=== PATIENT | male | born 1985 | race Caucasian/White ===

== ENCOUNTER 2019-11-18 08:28 | Inpatient (IN) | payer OTHER ==
[2019-11-18] MEDS ORDERED: Iopamidol 370 76% 50 ML VIAL FS ONE (08:31)
[2019-11-18] MEDS ORDERED: Iopamidol 370 76% 100 ML VIAL ONE (08:31)
[2019-11-18] MEDS ORDERED: Ondansetron PF 4 MG/2 ML Vial ONE (08:59)
[2019-11-18 09:13] LABS: #Lymphocytes 0.8 thou/uL (1.20-3.40); #Monocytes 0.9 thou/uL (0.11-0.59); #Neutrophils 11.8 thou/uL (1.40-6.50); %Basophils 0.1 % (0.0-1.0); %Lymphocytes 5.5 % (21.0-51.0); %Monocytes 6.5 % (0.0-10.0); %Neutrophils 87.8 % (42.0-75.0); Hemoglobin 13.5 g/dL (14.0-18.0); Mean Corpuscular HGB CONC 33.9 g/dL (32.0-36.0); Mean Corpuscular Hemoglobin 34.9 pg (27.0-31.0); Mean Platelet Volume 8.5 fL (7.4-10.4); Platelet Count 203 thou/uL (130-400); RBC Distribution Width 11.2 % (11.5-14.5); Red Blood Cell (RBC) Count 3.88 mill/uL (4.70-6.10); White Blood Cell (WBC) Count 13.4 thou/uL (4.8-10.8)
[2019-11-18 09:37] LABS: ALT (SGPT) 309 U/L (8-55); AST (SGOT) 576 U/L (5-34); Alkaline Phosphatase 118 U/L (40-110); Anion Gap 18 mmol/L (10-20); BUN (Urea Nitrogen) 30 mg/dL (8.9-20.6); Bilirubin, Total 2.2 mg/dL (0.2-1.2); Calc. Creatinine Clearance 0 mL/min (70-130); Calcium 9.7 mg/dL (7.8-10.44); Carbon Dioxide 27 mmol/L (22-29); Chloride 95 mmol/L (98-107); Estimated GFR-MDRD 52; Globulin 2.4 g/dL (2.4-3.5); Glucose 173 mg/dL (70-105); Lipase 56 U/L (8-78); Potassium 4.5 mmol/L (3.5-5.1); Protein, Total 7.4 g/dL (6.0-8.3); Sodium 135 mmol/L (136-145)
[2019-11-18 10:57] LABS: ALT (SGPT) 308 U/L (8-55); AST (SGOT) 570 U/L (5-34); Alkaline Phosphatase 121 U/L (40-110); Bilirubin, Direct 1.1 mg/dL (0.1-0.3); Protein, Total 7.4 g/dL (6.0-8.3)
--- NOTE | 2019-11-18 11:39 | CT ---
ABDOMEN AND PELVIC CT SCAN WITH IV CONTRAST: History: Nausea, vomiting. FINDINGS: 0.5 cm diameter nodule in the right middle lobe. Severe fatty changes of the liver. No ductal dilatat ion. Visualized gallbladder, pancreas, spleen, and adrenal glands are unremarkable. Too small to bhavani acterize low attenuation focus in the posterior right mid kidney statistically a small cyst. No renal calculus or acute obstruction. No CT evidence for acute appendicitis. No evidence for large or sm all bowel obstruction. No free intraperitoneal fluid within the abdomen or pelvis. Urinary bladder is unremarkable. IMPRESSION: 1. 0.5 cm diameter pulmonary nodule in the right middle lobe. 2. Consider one year follow up complete chest CT depending upon risks. 3. Marked fatty changes in the liver. 4. Too small to characterize right renal low attenuation focus, statistically a tiny cyst. 5. No evidence for other significant acute process in the abdomen or pelvis. Code LN
[2019-11-18] MEDS ORDERED: Sodium Chloride 0.9% 100 ML ONE (11:56)
[2019-11-18] MEDS ORDERED: Metoclopramide HCl 10 MG/2 ML VIAL ONE (11:56)
[2019-11-18 12:00] LABS: Bacteria/HPF None Seen HPF (None Seen); Bilirubin Negative (Negative); Blood, Urine Negative (Negative); Clarity Clear (Clear); Glucose, Urine (Dipstick) 30 mg/dL (Negative); Leukocyte Negative Leu/uL (Negative); Nitrite Negative (Negative); Protein, Urine (Dipstick) 70 mg/dL (Neg-Trace); Squamous Epithelial 0-3 HPF (0-3); Urobilinogen Normal mg/dL (Less than 2)
[2019-11-18 12:05] LABS: HBCM Index 0.06 S/CO (0-0.79); HBSAg Index 0.17 S/CO (0-0.99); Hep A IgM AB Non-Reactive (NonReactive); Hep A IgM S/CO 0.17 S/CO (0-0.79); Hep B Surf Ag Non-Reactive S/CO (NonReactive); Hep C IgG Ab Non-Reactive (NonReactive); Hep C Index 0.04 S/CO (0-0.79); Hepatitis B Core IgM Abs Non-Reactive (NonReactive)
[2019-11-18 12:10] LABS: Mucous/LPF 2+ LPF (<2+)
[2019-11-18 12:11] LABS: RBC/HPF 0-3 HPF (0-3)
--- NOTE | 2019-11-18 13:01 | PDOC.FPRHP ---
- History of Present Illness Chief Complaint: nausea/vomting History of Present Illness: 34yo M with h/o EtOH abuse presents for 3day history of nausea and vomiting. States onset of sxs night with fatigue, awoke that night with body aches, fever, chills, diaphoresis, and nausea. All day yesterday had nausea with vomiting, initially clear liquid vomit, then pink-tinged, and now with dark red blood mixed in, nonbilious. Unable to keep solids or liquids down. Mild epigastric pain with vomiting. Decreased urine output. 1 normal BM yesterday, no diarrhea. No known sick contacts, family members at home without similar sxs, no previous similar episodes. Drinks 3+ 8oz glasses of wine nightly for many years. Smokes about 0.5ppd for 5-6 years. No history of IV drug abuse or STDs. States he has never had alcohol withdrawal seizure but does get shakes when he does drink. Called telehealth GI yesterday who sent in nausea med with mild improvement of sxs. ED Course: Given Reglan 10mg, Zofran 8mg, 2L NS - Allergies/Adverse Reactions Allergies Allergy/AdvReac Type Severity Reaction Status Date / Time No Known Allergies Allergy Unverified 11/18/19 14:05 - Home Medications Medication Instructions Recorded Confirmed Type No Known 11/18/19 11/18/19 History - History PMHx: Lactose intolerance PSHx: L knee FHx: Grandfather with [place], CAD. Aunt with lymphoma. Social: Drinks 3+ 8oz glasses of wine daily for many years. THC use years ago, no recent. No IV drug abuse. Smokes <0.5ppd for 5-6 years. Lives at home with and 2 children. Thinks had syphillis in past, he has not been tested. Works in [employer] field. - Review of Systems General: reports: fever/chills (chills), weight/appetite/sleep changes ( decreased), night sweats, fatigue Eyes: denies: vision changes ENT: denies: nasal congestion, rhinorrhea Respiratory: denies: cough, congestion, shortness of breath Cardiovascular: denies: chest pain, palpitation, edema Gastrointestinal: reports: nausea, vomiting, abdominal pain (mild epigastric). denies: diarrhea, constipation Genitourinary: denies: incontinence, dysuria Skin: denies: rashes Neurological: denies: numbness - Vital signs BP: 129/89 HR: 124 -> 105 RR: 16 Tmax: 98.6 Pox: 99% on RA Wt: 63kg - Physical Exam Constitutional: NAD, awake, alert and oriented, well developed, other (Thin, well-appearing, well-groomed, thin) HEENT: PERRLA, EOMI, no scleral icterus, grossly normal vision, MMM (after IVF in ED), oropharynx clear Neck: supple Heart: RRR, normal S1/S2, no murmurs/rubs/gallops, pulses present, no edema Lungs: CTAB, no respiratory distress, good air movement, no rales/rhonchi, no wheezing Abdomen: soft, bowel sounds present, other (very mild epigastric TTP) Musculoskeletal: normal structure, normal tone Neurological: no focal deficit, other (no tremor) Skin: no rash/lesions Heme/Lymphatic: no unusual bruising or bleeding Psychiatric: normal mood and affect FMR H&P: Results - Labs Result Diagrams: 11/18/19 08:56 11/18/19 08:56 Lab results: WBC 13.4 thou/uL (4.8-10.8) H 11/18/19 08:56 Hgb 13.5 g/dL (14.0-18.0) L 11/18/19 08:56 Hct 39.9 % (42.0-52.0) L 11/18/19 08:56 MCV 103.0 fL (78.0-98.0) H 11/18/19 08:56 Plt Count 203 thou/uL (130-400) 11/18/19 08:56 Neutrophils % 87.8 % (42.0-75.0) H 11/18/19 08:56 Sodium 135 mmol/L (136-145) L 11/18/19 08:56 Potassium 4.5 mmol/L (3.5-5.1) 11/18/19 08:56 Chloride 95 mmol/L (98-107) L 11/18/19 08:56 Carbon Dioxide 27 mmol/L (22-29) 11/18/19 08:56 BUN 30 mg/dL (8.9-20.6) H 11/18/19 08:56 Creatinine 1.55 mg/dL (0.7-1.3) H 11/18/19 08:56 Glucose 173 mg/dL (70-105) H 11/18/19 08:56 Calcium 9.7 mg/dL (7.8-10.44) 11/18/19 08:56 Total Bilirubin 2.0 mg/dL (0.2-1.2) H 11/18/19 08:56 AST 570 U/L (5-34) H 11/18/19 08:56 ALT 308 U/L (8-55) H 11/18/19 08:56 Alkaline Phosphatase 121 U/L (40-110) H 11/18/19 08:56 Serum Total Protein 7.4 g/dL (6.0-8.3) 11/18/19 08:56 Albumin 5.0 g/dL (3.5-5.0) 11/18/19 08:56 Lipase 56 U/L (8-78) 11/18/19 08:56 Urine Ketones 20 mg/dL (Negative) A 11/18/19 Unknown Urine Blood Negative (Negative) 11/18/19 Unknown Urine Nitrite Negative (Negative) 11/18/19 Unknown Ur Leukocyte Esterase Negative Luca/uL (Negative) 11/18/19 Unknown Urine RBC 0-3 HPF (0-3) 11/18/19 Unknown Urine WBC 4-6 HPF (0-3) A 11/18/19 Unknown Ur Squamous Epith Cells 0-3 HPF (0-3) 11/18/19 Unknown Urine Bacteria None Seen HPF (None Seen) 11/18/19 Unknown - Radiology Interpretation CT scan - abdomen Status: report reviewed by me (0.5cm RML pulm nodule, fatty liver, tiny R renal cyst) FMR H&P: A/P - Problem List (1) Alcoholic hepatitis Current Visit: Yes Status: Acute Code(s): K70.10 - ALCOHOLIC HEPATITIS WITHOUT ASCITES (2) Hematemesis Current Visit: Yes Status: Acute Code(s): K92.0 - HEMATEMESIS (3) GLENNA (acute kidney injury) Current Visit: Yes Status: Acute Code(s): N17.9 - ACUTE KIDNEY FAILURE, UNSPECIFIED - Plan 34yo M with h/o EtOH abuse presents for hematemasis and nausea #Suspected Acute Alcoholic hepatitis - 3 day onset of nausea, vomiting, mild epigastric pain - Transaminitis with AST 570, ALT 308, Tbili 2.2 - Hepatitis panel neg - Will check HIV, RPR - CT abd - fatty liver - Ordered RUQ US - Coags pending - Alcohol lv pending - drinks 3+ 8oz glasses of wine nightly - UDS, APAP lv pending #Hematemesis, suspect Lou Martinez tear - likely 2/2 above. approx 250cc at bedside - Place NPO, IV Protonix BID - Will consult GI, Dr. Bravo, apprec recs - Zofran libby - Hb 13.5, likely lower as he is hemoconcentrated, will monitor #EtOH abuse with withdrawals - Last drink 11/15, drinks 3+ glasses of wine nightly - ASE protocol - Librium taper - Folic acid, MV, Thiamine #Suspected prerenal GLENNA - Cr 1.55, s/p 2L NS in ED - LR @ 100cc/hr - monitor #Leukocytosis - WBC 13.4, likely 2/2 volume depletion - no s/s of infection, will monitor #Pulmonary nodule - incidental findings on CT Abd - needs outpt follow up #Tob abuse - counseled on cessation #Lactose Intolerance - avoid triggering foods PCP: None - Dr. Taylor many years ago Code: Full IVF: LR @ 100cc/hr Diet: NPO VTE: none - suspected GI bleed Disposition/LOS: Admit to medical inpt for acute alcoholic hepatitis and hematemasis. Workup pending. GI consulted. Monitor for EtOH withdrawals. Anticipate LOS > 48hrs. FMR H&P: Upper Level - Pertinent history 34 yo M here with complaint of vomiting blood for the past 24 hours. He states that on 11/15 he started to have general malaise and loss of appetite. That night he had multiple episodes of vomiting, during which time he noticed blood streaking and progressive darkening of vomitus. On 11/16- he noted vomit was all blood/coffee grounds. He has a hx of heavy etoh use daily. His last drink was on 11/15. In the past he gets tremors when he goes too long without a drink. He denies any hx of IVDU. No hx of hepatitis. CT in the ER demonstrated a markedly enlarged liver with fatty infiltrate. No known PMHx Surgical Hx L tibia ORIF Social Hx 4+ glasses of wine daily, hard liquor daily 0.5 ppd smoker Denies drug use Fam Hx non contributory - Pertinent findings See physician internist note for full ROS, PE, vitals, and labs ROS General Complains of chills. Denies fever CV Denies CP, palpitation, or peripheral edema Resp Denies SOB or cough GI complains of vomiting blood. Denies diarrhea or bloody stool. Complains of mild abd pain denies increased frequency or dysuria Neuro denies numbness or weakness PE General A&O x4, NAD HEENT NCAT CV RRR, no murmur Resp CTA, no respiratory distress Abd RUQ and LUQ with mild TTP. Non palpable liver. No distension or guarding Extremities no edema, equal pedal pulses Neuro no focal deficits, CN II-XII intact - Plan Date/Time: 11/18/19 1179 I, Nilson Loco, , have evaluated this patient and agree with findings/plan as outlined by physician internist resident. Pertinent changes/additions are listed here. 1.Acute alcoholic hepatitis -Start thiamine, B12, and folate -Zofran prn for n/v -RUQ US -Viral hep panel negative. HIV pending -Maintenance IVF -Check coags and Mg/Phos. Monitor CMP and coags daily -ASE protocol -Consult GI 2.Hematemesis -Likely secondary to Lou Martinez tear. -Start IV protonix daily. Zofran as above -Hold NPO -CBC in am 3.GLENNA - Likely pre renal. -IVF, monitor daily labs 4.Etoh abuse -Case management consult -Advise cessation 5.Hyperbilirubinemia 6.Elevated LFT 7.Leukocytosis -No concern for infection at this time, likely reactive 8.Alcoholic fatty liver PPx SCD Diet NPO Code Full Addendum - Attending - Attending Attestation Date/Time: 11/18/19 4665 I personally evaluated the patient and discussed the management with Dr. Arroyo/ [place]. I agree with the History, Examination, Assessment and Plan documented above with any addition or exceptions noted below.
[2019-11-18] MEDS ORDERED: Calcium Carbonate 500 MG ChewTAB PO PRN (13:55)
[2019-11-18] MEDS ORDERED: chlordiazePOXIDE HCl 25 MG CAP PO SCH (13:55)
[2019-11-18 14:14] LABS: Amphetamine Not Detected (NotDetected); Barbiturates Screen Not Detected (NotDetected); Benzodiazepine Screen Not Detected (NotDetected); Cocaine Metabolite Screen Not Detected (NotDetected); Medtox Control Line Valid? VALID (VALID); Medtox Reader # READER 4; Methadone Not Detected (NotDetected); Methamphetamine Not Detected (NotDetected); Opiate Screen Not Detected (NotDetected); Oxycodone Screen Not Detected (NotDetected); Phencyclidine (PCP) Not Detected (NotDetected); THC/Cannabinoid Screen Not Detected (NotDetected); Tricyclic Screen Not Detected (NotDetected)
[2019-11-18] MEDS ORDERED: Diazepam 5 MG TAB PO PRN (14:16)
[2019-11-18 14:22] VITALS: BMI 17.9
[2019-11-18] MEDS ORDERED: Thiamine HCl 200 MG/2 ML VIAL IM SCH (14:30)
[2019-11-18] MEDS ORDERED: Diazepam 5 MG TAB PO SCH (14:30)
[2019-11-18] MEDS: Lactated Ringer's 1,000 ML IV SCH (15:00)
[2019-11-18] MEDS: Ondansetron PF 4 MG/2 ML Vial IVP SCH ×2 (15:03→21:49)
[2019-11-18] MEDS: Pantoprazole 40 MG VIAL IVP SCH (15:04)
[2019-11-18] MEDS ORDERED: Lorazepam 2 MG/ML VIAL SLOW IVP PRN (15:56)
[2019-11-18 16:16] LABS: INR-International Normal Ratio 1.2; PTT 28.1 SEC (22.9-36.1); Prothrombin Time 15.4 SEC (12.0-14.7)
[2019-11-18 16:18] LABS: Hemoglobin A1c 4.7 % (4.0-6.0)
[2019-11-18 16:28] LABS: Alcohol Less than 10 mg/dL (Less than 10); Magnesium 1.7 mg/dL (1.6-2.6)
[2019-11-18 16:30] LABS: Phosphorus 1.1 mg/dL (2.3-4.7)
[2019-11-18 16:33] LABS: Acetaminophen Less than 6.0 mcg/mL (10.0-30.0); Alcohol Less than 10 mg/dL (Less than 10); Salicylate Less than 8.0 mg/dL (15.0-30.0)
[2019-11-18 16:48] LABS: Syphilis Antibody Nonreactive (Nonreactive); Syphilis Antibody Index 0.02 S/CO (<1.00 Non-Reactive)
[2019-11-18] MEDS ORDERED: Potassium Phosphate 12 MMOL in Sodium Chloride 0.9% 100 ML IVPB SCH (17:00)
[2019-11-18 17:12] LABS: Thyroid Stimulating Hormone 0.3875 uIU/mL (0.35-4.94)
[2019-11-18 18:03] LABS: HIV (1/2) Antibody/Antigen Non-Reactive (NonReactive); HIV 1/2 INDEX 0.07 S/CO (<1.00)
[2019-11-18] MEDS: chlordiazePOXIDE HCl 25 MG CAP PO SCH (21:49)
[2019-11-19] MEDS: Lactated Ringer's 1,000 ML IV SCH ×2 (01:59→10:54)
[2019-11-19] MEDS: Pantoprazole 40 MG VIAL IVP SCH ×2 (01:59→14:50)
[2019-11-19] MEDS: chlordiazePOXIDE HCl 25 MG CAP PO SCH ×4 (03:46→21:16)
[2019-11-19] MEDS ORDERED: Diazepam 5 MG TAB PO PRN (04:00)
[2019-11-19] MEDS: Ondansetron PF 4 MG/2 ML Vial IVP SCH ×3 (05:27→21:17)
--- NOTE | 2019-11-19 07:19 | PDOC.FM ---
- Subjective Subjective: Doing well this morning, no acute events overnight. No agitation, hallucinations , restlessness. No further vomiting, nausea controlled, but is now having 4+ episodes of dark, tarry diarrhea. No fever/chills, SOB, CP, or abd pain. Eager to talk to GI today. He also states he turned to alcohol to treat his anxiety. He tried zoloft in the past but had SE's so stopped. He wants to quit alcohol and try a different medication for anxiety. Discussed possible AA meetings and other therapies as well. Very motivated to establish with PCP and begin treatments. - Objective MAR Reviewed: Yes Vital Signs & Weight: Vital Signs (12 hours) Temp Pulse Resp BP BP Pulse Ox 11/19/19 04:15 98.5 F 109 H 18 106/66 95 11/19/19 04:00 106/66 11/18/19 23:46 98.7 F 112 H 18 114/75 96 11/18/19 20:11 98.1 F 107 H 18 123/87 96 11/18/19 20:10 123/87 Weight Weight 60.192 kg I&O: 11/18/19 11/19/19 11/20/19 06:59 06:59 06:59 Intake Total 1000 Balance 1000 Result Diagrams: 11/19/19 08:08 11/19/19 06:58 Phys Exam - Physical Examination Constitutional: NAD (resting comfortably, no tremor, good spirits) HEENT: moist MMs Neck: supple Respiratory: no wheezing, no rales, no rhonchi, clear to auscultation bilateral Cardiovascular: RRR, no significant murmur, no rub Gastrointestinal: soft, non-tender, no distention, positive bowel sounds Musculoskeletal: no edema Neurological: moves all 4 limbs Psychiatric: normal affect, A&O x 3 Deviation from normal: anxiety Dx/Plan (1) Alcoholic hepatitis Code(s): K70.10 - ALCOHOLIC HEPATITIS WITHOUT ASCITES Status: Acute (2) Hematemesis Code(s): K92.0 - HEMATEMESIS Status: Acute (3) GLENNA (acute kidney injury) Code(s): N17.9 - ACUTE KIDNEY FAILURE, UNSPECIFIED Status: Acute - Plan Plan: 34yo M with h/o EtOH abuse presents for hematemasis and nausea #Suspected Acute Alcoholic hepatitis - 3 day onset of nausea, vomiting, mild epigastric pain - improved this AM - Transaminitis with AST 570, ALT 308, Tbili 2.2 - Hepatitis panel neg, HIV and RPR neg - CT abd - enlarged, fatty liver - RUQ US pending - INR 1.2 - UDS, APA, and EtOH lv's negative - Pt overall improved this AM, eager to quit alcohol for good #Hematemesis, suspect Lou Martinez tear - likely 2/2 above. approx 250cc hematemesis at bedside in ED - Place NPO, IV Protonix BID - no further hematemesis since admission, nausea resolved - now with dark tarry diarrhea, likely 2/2 upper GI bleed - GI consulted, Dr. Bravo, apprec recs - Zofran libby - Hb 13.5, likely lower as he is hemoconcentrated, AM labs pending, will monitor #EtOH abuse with withdrawals - Last drink 11/15, drinks 4+ glasses of wine nightly - ASE protocol, scores 6-5-6-4 overnight - Librium taper - Folic acid, MV, Thiamine - wants to quit drinking, discussed AA meetings and librium taper #Anxiety - Self-treated with alcohol in past - interested in starting SSRI - Had SE of sexual dysfunction with zoloft - will start after GI workup #Suspected prerenal GLENNA - Cr 1.55, s/p 2L NS in ED - LR @ 100cc/hr - monitor, AM labs pending - replace lytes as necessary #Leukocytosis - WBC 13.4, likely 2/2 volume depletion - no s/s of infection, will monitor #Pulmonary nodule - incidental findings on CT Abd - needs outpt follow up #Tob abuse - counseled on cessation #Lactose Intolerance - avoid triggering foods PCP: None - Dr. Taylor many years ago Code: Full IVF: LR @ 100cc/hr Diet: NPO VTE: none - suspected GI bleed Disposition/LOS: Admitted to medical inpt for acute alcoholic hepatitis and hematemasis. GI consulted. Monitor for EtOH withdrawals. Treating underlying conditions. Anticipate LOS > 48hrs. Addendum - Attending - Attending Attestation Date/Time: 11/19/19 1005 I personally evaluated the patient and discussed the management with Dr. Arroyo. I agree with the History, Examination, Assessment and Plan documented above with any addition or exceptions noted below. Patient stable. Going for EGD today due to suspected UGIB. H/H has dropped significantly. LFTs improved. GI on board. Transfuse if H/H continues to decline.
[2019-11-19 07:52] LABS: Prothrombin Time Greater than 150.0 SEC (12.0-14.7)
[2019-11-19 08:04] LABS: ALT (SGPT) 120 U/L (8-55); AST (SGOT) 172 U/L (5-34); Albumin 3.3 g/dL (3.5-5.0); Alkaline Phosphatase 62 U/L (40-110); Anion Gap 12 mmol/L (10-20); BUN (Urea Nitrogen) 33 mg/dL (8.9-20.6); Bilirubin, Total 1.3 mg/dL (0.2-1.2); Calc. Creatinine Clearance 90 mL/min (70-130); Carbon Dioxide 26 mmol/L (22-29); Chloride 104 mmol/L (98-107); Estimated GFR-MDRD 88; Globulin 1.7 g/dL (2.4-3.5); Glucose 93 mg/dL (70-105); Magnesium 1.7 mg/dL (1.6-2.6); Potassium 4.1 mmol/L (3.5-5.1); Sodium 138 mmol/L (136-145)
[2019-11-19 08:06] LABS: #Lymphocytes 1.1 thou/uL (1.20-3.40); #Monocytes 0.9 thou/uL (0.11-0.59); %Basophils 0.5 % (0.0-1.0); %Eosinophils 0.3 % (0.0-10.0); %Lymphocytes 13.2 % (21.0-51.0); %Monocytes 11.3 % (0.0-10.0); %Neutrophils 74.8 % (42.0-75.0); Hemoglobin 7.9 g/dL (14.0-18.0); Mean Corpuscular HGB CONC 34.6 g/dL (32.0-36.0); Mean Corpuscular Hemoglobin 35.6 pg (27.0-31.0); Mean Platelet Volume 8.6 fL (7.4-10.4); Platelet Count 123 thou/uL (130-400); RBC Distribution Width 10.9 % (11.5-14.5); Red Blood Cell (RBC) Count 2.22 mill/uL (4.70-6.10)
[2019-11-19 08:07] LABS: Phosphorus Less than 1.0 mg/dL (2.3-4.7)
[2019-11-19] MEDS ORDERED: Potassium Phosphate 15 MMOL in Sodium Chloride 0.9% 250 ML 250 ML IVPB SCH (08:15)
[2019-11-19] MEDS: Thiamine 100 MG TAB PO SCH (08:30)
[2019-11-19] MEDS: Magnesium Oxide 400 MG TAB PO SCH (08:30)
[2019-11-19] MEDS: Multivit, Therapeutic 1 TAB PO SCH (08:30)
[2019-11-19] MEDS: Folic Acid 1 MG TAB PO SCH (08:30)
[2019-11-19 08:32] LABS: INR-International Normal Ratio 1.2; PTT 27.1 SEC (22.9-36.1); Prothrombin Time 15.5 SEC (12.0-14.7)
[2019-11-19 08:33] LABS: #Lymphocytes 1.1 thou/uL (1.20-3.40); #Monocytes 0.9 thou/uL (0.11-0.59); #Neutrophils 6.4 thou/uL (1.40-6.50); %Basophils 0.3 % (0.0-1.0); %Eosinophils 0.4 % (0.0-10.0); %Lymphocytes 12.8 % (21.0-51.0); %Monocytes 10.2 % (0.0-10.0); %Neutrophils 76.4 % (42.0-75.0); Hemoglobin 7.9 g/dL (14.0-18.0); Mean Corpuscular HGB CONC 34.8 g/dL (32.0-36.0); Mean Corpuscular Hemoglobin 35.9 pg (27.0-31.0); Platelet Count 129 thou/uL (130-400); Red Blood Cell (RBC) Count 2.21 mill/uL (4.70-6.10); White Blood Cell (WBC) Count 8.4 thou/uL (4.8-10.8)
--- NOTE | 2019-11-19 08:36 | ULT ---
RIGHT UPPER QUADRANT ULTRASOUND: HISTORY: Transaminitis. Enlarged liver on CT. FINDINGS: Diffuse, heterogeneous, coarse increased echogenicity throughout a slightly enlarged liver. The gallb ladder is somewhat poorly defined. There are no overt gallstones, gallbladder wall thickening or maxi cholecystic fluid. The common bile duct is 0.3 cm. The visualized pancreas and right kidney are unrem arkable. No right upper quadrant fluid collection. IMPRESSION: Hepatomegaly with coarse altered echogenicity, evidence for nonspecific hepatic parenchymal process. No common duct dilatation. No evidence for acute cholecystitis. POS: [facility]
[2019-11-19] MEDS ORDERED: Folic Acid 1 MG TAB PO SCH (09:00)
[2019-11-19] MEDS ORDERED: Thiamine 100 MG TAB PO SCH (09:00)
[2019-11-19] MEDS ORDERED: Multivitamin W/ Minerals 1 TAB PO SCH (09:00)
[2019-11-19] MEDS ORDERED: Midazolam HCl 2 mg/2 ml Vial ONE (09:11)
[2019-11-19] MEDS ORDERED: PROPOFOL 200 MG/20 ML VIAL ONE (09:12)
[2019-11-19] MEDS ORDERED: Ketamine 50 MG/ML (10ML VIAL) ONE (09:24)
[2019-11-19] MEDS ORDERED: Ondansetron HCl/PF 4 MG/2 ML Vial IVP PRN (10:13)
[2019-11-19] MEDS ORDERED: Promethazine HCl 25 MG/ML VIAL SLOW IVP PRN (10:13)
[2019-11-19] MEDS ORDERED: Promethazine HCl 25 MG/ML VIAL IM PRN (10:13)
[2019-11-19 13:20] LABS: Hemoglobin 7.6 g/dL (14.0-18.0); Platelet Count 122 thou/uL (130-400)
--- NOTE | 2019-11-19 13:49 | CON ---
DATE OF CONSULTATION: 11/19/2019 REASON FOR CONSULTATION: Hematemesis, melena, and elevated LFTs/alcoholic hepatitis. CONSULTING PROVIDER: Nash Arroyo MD HISTORY OF PRESENT ILLNESS: The patient is a 34-year-old male with past medical history of lactose intolerance and alcohol abuse, presenting with complaints of nausea, vomiting, and hematemesis. The patient states that he was in his usual state of health until approximately 3 days ago when he began having increased midepigastric abdominal discomfort. The next morning, this was associated with increased nausea and vomiting, initially with clear nonbilious emesis. However , as he had repeated episodes of nausea and vomiting throughout the day, it became more blood-tinged until finally it was more dark maroon in coloration. This was associated with increased weakness, midepigastric abdominal pain, subjective chills/diaphoresis. It initially prompted him to call [facility] where he spoke with Dr. Sunshine about his particular symptoms with the plan of care to proceed with antiemetic control, but if his symptoms persisted, then he recommended proceeding to the nearest ER for further evaluation. With repeated episodes of nausea, vomiting, as well as hematemesis, the patient then went to the [facility] ER and was noted to have a decreased H and H, but only mildly decreased when compared to baseline. He was admitted to the hospital for observation overnight and had no further episodes of nausea and vomiting with aggressive antiemetic control. However, over the last 12 to 24 hours, the patient has been having increased diarrhea consisting of dark black, semi-solid to liquid bowel movements, and also had a concurrent drop in his H and H concerning for upper GI bleeding. Otherwise, he denies any fevers, dysphagia, odynophagia, overt hematochezia, or recent weight loss. REVIEW OF SYSTEMS: A 10-category review of systems was obtained with all responses negative except for the pertinent positives as listed in HPI. PAST MEDICAL HISTORY: As per HPI. PAST SURGICAL HISTORY: Left knee arthroscopy. FAMILY HISTORY: Denies any GI malignancies. SOCIAL HISTORY: Drinks 3 or more glasses of wine nightly for at least the last 3-5 years, smokes approximately 1/2 pack per day for the last 5 to 6 years. He does endorse remote marijuana use, but his last use was approximately 6 years ago. OUTPATIENT MEDICATIONS: None. ALLERGIES: NO KNOWN DRUG ALLERGIES. PHYSICAL EXAMINATION: VITAL SIGNS: Temperature 98.4, pulse 101, blood pressure 112/70, respiratory rate 18, saturating 93% on room air. GENERAL: The patient was lying in bed, in no acute distress. Alert and oriented x4. HEENT: Normocephalic and atraumatic. NECK: Supple. No JVD or scleral icterus noted. CARDIOVASCULAR: Tachycardic rate but regular rhythm. No discernible murmurs, gallops, or rubs. RESPIRATORY: Clear to auscultation bilaterally with no discernible wheezes or rales. ABDOMEN: Hypoactive bowel sounds. Soft, nondistended. Tenderness to palpation in the midepigastric region only. EXTREMITIES: No cyanosis, clubbing, or edema. LABORATORY DATA: CBC with a white blood cell count of 8.4, hemoglobin 7.9, hematocrit 22.8, platelets 129. INR 1.2. Chemistry with a sodium of 138, potassium 4.1, chloride 104, CO2 of 26, BUN 33, creatinine 0.98, glucose 88. AST 172, ALT 120, alkaline phosphatase 62, total bilirubin 1.3, albumin 3.3, lipase 56. IMAGING DATA: CT of the abdomen and pelvis was obtained on November 18, 2019, which showed a 5 mm pulmonary nodule within the right middle lobe with indeterminate significance and too small to characterize, severe fatty changes were also seen within the liver, but did not show any hepatic masses or ductal dilatation associated with that finding. There was no evidence of acute appendicitis, small-bowel obstruction, or free intraperitoneal fluid. Right upper quadrant ultrasound was also obtained on November 19, 2019, with official read still pending at this time. ASSESSMENT AND PLAN: The patient is a 34-year-old male with past medical history of alcohol abuse and lactose intolerance, presenting with hematemesis. Hematemesis: The patient is presenting with a 3-day history of increased nausea and vomiting that was initially characterized as clear nonbilious emesis. However, with repeated episodes of vomiting/retching, he has gradually had more blood-tinged and then finally more maroon-colored hematemesis in addition to what appears to be melenic-type stools. He denies the use of NSAIDs that would increase his risk for peptic ulcer disease, but it is also on the differential and CT scan is not showing any significant abnormalities that would contribute to the above symptoms. However, he has had a significant decrease in his H and H when compared to admission concerning for active GI bleeding. Differential could include esophagitis, gastritis, duodenitis, peptic ulcer disease, arteriovenous malformation, Dieulafoy lesion, and/or GI neoplasm (less likely). RECOMMENDATIONS: 1. Would continue to trend his H and H and transfuse as necessary to maintain an H and H of 7/21. 2. Continue to monitor clinically for signs of active GI bleeding. 3. Continue the patient on PPI b.i.d. in addition to aggressive antiemetic control. 4. Continue n.p.o. status in preparation for EGD later this morning. Further recommendations to follow upper endoscopy. Elevated LFTs/alcoholic hepatitis The patient is presenting with a significant alcohol abuse history, drinking approximately 3 or more glasses of wine daily for several years. On admission, the patient was noted to have a moderate elevation in his AST, ALT, and Tbili with an ALT/AST predominance, consistent with a hepatocellular process. However , with more supportive care with IV fluid hydration, he has had a significant reduction in all of his LFTs (with normalization of Tbili and INR). At this time, given the 2:1 predominance of AST to ALT on admission, this seems to be most consistent with mild alcoholic hepatitis. RECOMMENDATIONS: 1. Would continue to trend his LFTs and INR daily to monitor liver function. 2. Continue with supportive care with IV fluid and thiamine administration as you are doing. 3. Strongly encourage alcohol cessation. 4. Steroid administration is not indicated at this time. 5. Agree with placing the patient on an alcoholic withdrawal protocol given his history of tremors with cessation in the past. We will continue to follow. Please call with any questions. Job ID: [id number] [facility]
[2019-11-19 13:51] LABS: Phosphorus 1.9 mg/dL (2.3-4.7)
[2019-11-19] MEDS ORDERED: PHOS-NAK 1 PKT PACK PO SCH ×2 (14:00→16:45)
--- NOTE | 2019-11-19 16:26 | OP ---
DATE OF PROCEDURE: 11/19/2019 PROCEDURE PERFORMED: EGD with control of hemorrhage. INDICATION FOR PROCEDURE: Hematemesis, nausea, and vomiting. DESCRIPTION OF PROCEDURE: After the risks and benefits of the procedure were explained to the patient including risks of bleeding, infection, perforation, reactions to anesthesia, aspiration and/or pain, informed consent was obtained. The patient was then taken to the endoscopy suite, where deep sedation was administered via propofol and anesthesia support. Once adequate sedation was achieved, the patient was placed in the left lateral decubitus position, followed by introduction of the therapeutic gastroscope into the mouth with intubation of the esophagus, stomach, and the proximal small intestines with the findings listed below. The patient tolerated the procedure well with no immediate perioperative complications. On conclusion of the procedure, all equipment was removed from the patient and he was transferred to PACU in satisfactory condition. FINDINGS: 1. Esophagus: Normal-appearing mucosa was seen in the proximal and mid esophagus; however, in the distal esophagus, a purplish hue, a patch of purple-appearing mucosa was seen along the inferior aspect of the esophagus extending from 35 cm to 40 cm, but no evidence of esophageal varices. At the gastroesophageal junction, there were 3 linear ulcerations as well as multiple erosions, seen consistent with LA grade C reflux esophagitis. However, there were two spots at the gastroesophageal junction that exhibited mild tearing of the mucosa as well as a visible vessel that was actively bleeding on one and a probable visible vessel on the other that was nonbleeding. Both of these visible vessel sites were then intervened upon with bipolar cauterization with good hemostasis and no active bleeding seen at the end of the maneuver. Otherwise, there was no evidence of mass lesions within the distal esophagus. 2. Stomach: A large amount of retained blood and blood clot was seen within all aspects of the stomach. With aggressive irrigation and suctioning, adequate visualization of the gastric mucosa was able to be achieved, but inadequate for the evaluation of small mucosal lesions (less than 5 mm in size) of the mucosa seen. Normal-appearing mucosa was seen in the gastric fundus, body, greater curvature, antrum, and incisura. On retroflexion, active oozing of blood was seen in the gastric cardia, but was also seen emanating from the gastroesophageal junction (prior to bipolar cauterization). There was no evidence of erosions, ulcerations, or mass lesions seen throughout the entire stomach. 3. Duodenum: Normal-appearing mucosa was seen in both the duodenal bulb and second portion of the duodenum. There was no evidence of erosions, ulcerations, mass lesions, or active/recent bleeding. IMPRESSION: 1. Two Lou-Martinez tears were seen at the gastroesophageal junction, both with visible vessels seen. However, one was actively bleeding at the time of this endoscopy; good hemostasis was achieved with bipolar cauterization with no bleeding at the end of maneuvers. 2. LA grade C erosive esophagitis (most likely contributing to the Lou-Martinez tear). 3. Significant amount of blood in the stomach, limiting visualization of fine mucosal lesions within the entire stomach itself, but no evidence of active bleeding visualized in this region. RECOMMENDATIONS: 1. We will continue to trend his H and H and transfuse as necessary to maintain an H and H of 7/21. 2. Continue to monitor clinically for signs of active GI bleeding. 3. We would continue the patient on PPI 40 mg IV b.i.d. 4. We would place the patient on a clear liquid diet and advance the diet slowly as tolerated. 5. Would continue with aggressive antiemetic control that seems to be in part related to his alcohol withdrawal. 6. Continue with alcohol withdrawal protocol. We will continue to follow. Please call with any questions. Job ID: [id number]
[2019-11-20] MEDS: Lactated Ringer's 1,000 ML IV SCH ×5 (01:02→23:16)
[2019-11-20] MEDS: Pantoprazole 40 MG VIAL IVP SCH ×2 (01:05→12:59)
[2019-11-20] MEDS: chlordiazePOXIDE HCl 25 MG CAP PO SCH ×4 (03:37→20:44)
[2019-11-20] MEDS: Ondansetron PF 4 MG/2 ML Vial IVP SCH ×2 (05:35→12:59)
[2019-11-20 06:38] LABS: #Basophils 0.1 thou/uL (0.0-0.2); #Eosinphils 0.2 thou/uL (0.0-0.7); #Lymphocytes 1.8 thou/uL (1.20-3.40); #Monocytes 0.6 thou/uL (0.11-0.59); #Neutrophils 2.7 thou/uL (1.40-6.50); %Basophils 1.4 % (0.0-1.0); %Eosinophils 3.1 % (0.0-10.0); %Lymphocytes 33.4 % (21.0-51.0); %Monocytes 10.5 % (0.0-10.0); %Neutrophils 51.6 % (42.0-75.0); Hemoglobin 5.9 g/dL (14.0-18.0); Mean Corpuscular HGB CONC 35.7 g/dL (32.0-36.0); Mean Corpuscular Hemoglobin 36.8 pg (27.0-31.0); Mean Platelet Volume 8.2 fL (7.4-10.4); Platelet Count 92 thou/uL (130-400); White Blood Cell (WBC) Count 5.2 thou/uL (4.8-10.8)
--- NOTE | 2019-11-20 06:53 | PDOC.FM ---
- Subjective Subjective: Pt states he is ready to stop drinking etoh indefinitely. No further hematemesis c/o 5 black tarry stools since yesterday. Hgb dropped to 5.9 this AM. Denies SOB or palpitations. States he feels slightly weaker. - Objective MAR Reviewed: Yes Vital Signs & Weight: Vital Signs (12 hours) Temp Pulse Resp BP BP Pulse Ox 11/20/19 04:47 98.1 F 84 20 97/56 L 97 11/20/19 00:00 98.2 F 85 20 99/61 97 11/19/19 20:20 102/68 11/19/19 20:00 98.8 F 96 20 102/68 97 Weight Weight 60.192 kg I&O: 11/18/19 11/19/19 11/20/19 06:59 06:59 06:59 Intake Total 1000 2300 Balance 1000 2300 Result Diagrams: 11/20/19 06:20 11/20/19 06:20 Phys Exam - Physical Examination Constitutional: NAD HEENT: moist MMs Neck: no nodes, no JVD Respiratory: no wheezing, no rales, clear to auscultation bilateral Cardiovascular: RRR, no significant murmur Gastrointestinal: soft, no distention Musculoskeletal: no edema, pulses present Neurological: non-focal, moves all 4 limbs Lymphatic: no nodes Psychiatric: normal affect, A&O x 3 Skin: no rash Dx/Plan (1) Gastrointestinal hemorrhage with melena Code(s): K92.1 - MELENA Status: Acute (2) Acute blood loss anemia Code(s): D62 - ACUTE POSTHEMORRHAGIC ANEMIA Status: Acute (3) GLENNA (acute kidney injury) Code(s): N17.9 - ACUTE KIDNEY FAILURE, UNSPECIFIED Status: Acute (4) Alcoholic hepatitis Code(s): K70.10 - ALCOHOLIC HEPATITIS WITHOUT ASCITES Status: Acute (5) Hematemesis Code(s): K92.0 - HEMATEMESIS Status: Acute - Plan Plan: 34yo M with h/o EtOH abuse presents for hematemasis and nausea #Suspected Acute Alcoholic hepatitis - 3 day onset of nausea, vomiting, mild epigastric pain - improved this AM - Transaminitis with AST 570-> 172, ALT 308-> 120, Tbili 2.2-> 1.3 - Hepatitis panel neg, HIV and RPR neg - CT abd - enlarged, fatty liver - RUQ US, hepatomegaly - INR 1.2 - UDS, APA, and EtOH lv's negative - Pt overall improved this AM, eager to quit alcohol for good #Upper GI bleed, 2/2 X2 Lou Louise tears and erosive esophagitis - likely 2/2 above. approx 250cc hematemesis at bedside in ED - no further hematemesis since admission, nausea resolved - GI consulted, Dr. Bravo, apprec recs - EGD on 11/18 showed X2 lou louise tears and erosive esophagitis DARSHAN barrios C - Continue PPI IV 40 mg BID - Clear liquid diet, advance as tolerated - antiemetics - transfuse below hgb 7 hct 21 - Zofran libby - Hb 13.5 on admission, This AM 5.9 hgb - Ordered 1 unit pRBC and recheck H&H 4 hours post transfusion. #Acute blood loss anemia - Hb 13.5 on admission, This AM 5.9 hgb - Ordered 1 unit pRBC and recheck H&H 4 hours post transfusion. #EtOH abuse with withdrawals - Last drink 11/15, drinks 4+ glasses of wine nightly - ASE protocol, scores 6-4-3 overnight - Librium taper - Folic acid, MV, Thiamine - wants to quit drinking, discussed AA meetings and librium taper #Anxiety - Self-treated with alcohol in past - interested in starting SSRI - Had SE of sexual dysfunction with zoloft - will start lexapro after GI workup or at f/u visit with PCP #Suspected prerenal GLENNA - Cr 1.55, s/p 2L NS in ED - LR @ 100cc/hr - monitor, AM labs pending - replace lytes as necessary #Leukocytosis, resolved - WBC 13.4, likely 2/2 volume depletion--> 5.2 - no s/s of infection, will monitor #Pulmonary nodule - incidental findings on CT Abd - needs outpt follow up #Tob abuse - counseled on cessation #Lactose Intolerance - avoid triggering foods PCP: None - Dr. Taylor many years ago Code: Full IVF: LR @ 100cc/hr Diet: clears, advance as tolerated. VTE: none - upper GI bleed Disposition/LOS: Admitted to medical inpt for acute alcoholic hepatitis and hematemasis. GI consulted. Monitor for EtOH withdrawals. Treating underlying conditions. Anticipate LOS > 48hrs. Addendum - Attending - Attending Attestation Date/Time: 11/20/19 4566 I personally evaluated the patient and discussed the management with Dr. Miller I agree with the History, Examination, Assessment and Plan documented above with any addition or exceptions noted below. H&H dropped overnight. Tx 2 u PRBCs. repeat H&H this afternoon. Will await further GI recs. Continue librium taper.
[2019-11-20] MEDS ORDERED: PHOS-NAK 1 PKT PACK PO SCH (07:00)
[2019-11-20 07:03] LABS: ALT (SGPT) 92 U/L (8-55); AST (SGOT) 145 U/L (5-34); Alkaline Phosphatase 66 U/L (40-110); Anion Gap 9 mmol/L (10-20); BUN (Urea Nitrogen) 15 mg/dL (8.9-20.6); Calc. Creatinine Clearance 105 mL/min (70-130); Calcium 7.9 mg/dL (7.8-10.44); Carbon Dioxide 28 mmol/L (22-29); Chloride 102 mmol/L (98-107); Estimated GFR-MDRD Greater than 90; Globulin 1.4 g/dL (2.4-3.5); Glucose 93 mg/dL (70-105); Magnesium 1.6 mg/dL (1.6-2.6); Phosphorus 2.7 mg/dL (2.3-4.7); Potassium 3.2 mmol/L (3.5-5.1); Protein, Total 4.4 g/dL (6.0-8.3); Sodium 136 mmol/L (136-145)
[2019-11-20] MEDS: Multivit, Therapeutic 1 TAB PO SCH (07:49)
[2019-11-20] MEDS: Magnesium Oxide 400 MG TAB PO SCH (07:49)
[2019-11-20] MEDS: Folic Acid 1 MG TAB PO SCH (07:49)
[2019-11-20] MEDS: Thiamine 100 MG TAB PO SCH (07:49)
--- NOTE | 2019-11-20 14:41 | PRG ---
DATE OF SERVICE: 11/20/2019 REASON FOR CONSULTATION: Hematemesis, melena, actively bleeding Lou-Martinez tear. SUBJECTIVE: Yesterday afternoon and yesterday evening, the patient continued to have black-colored bowel movements with approximately 4 to 5 episodes of these black bowel movements. However, today he has had no further bowel movements at all nor has he had any repeat episodes of hematemesis. Currently, he states that he is feeling much better without any complaints of nausea, vomiting, fevers, chills, hematemesis, melena, hematochezia, dysphagia, or odynophagia. OBJECTIVE: VITAL SIGNS: Temperature 98.1, pulse 89, blood pressure 106/71, respiratory rate 16, and saturating 97% on room air. GENERAL: The patient was sitting at bedside, in no acute distress. Alert and oriented x4. CARDIOVASCULAR: Regular rate and rhythm. RESPIRATORY: Clear to auscultation bilaterally. ABDOMEN: Normoactive bowel sounds. Soft, nontender, and nondistended. EXTREMITIES: No cyanosis, clubbing, or edema. LABORATORY DATA: CBC with a white blood cell count of 5.2, hemoglobin 5.9, hematocrit 16.5, and platelets 92. Chemistry with a sodium of 136, potassium 3.2, chloride 102, CO2 of 28, BUN 15, creatinine 0.84, and glucose 93. AST 145, ALT 92, alkaline phosphatase 66, and total bilirubin 1.0. IMAGING DATA: The patient underwent upper endoscopy on 11/19/2019, which showed the presence of two visible vessels within the distal esophagus, one of which was actively bleeding and consistent with Lou-Martinez tear, eroding into a vessel. Both of these vessels were intervened upon with bipolar cauterization with good hemostasis achieved. LA grade C reflux esophagitis was also seen in the distal esophagus, but did not appear to be actively bleeding. A large amount of retained blood was seen within the stomach, but there were no abnormality seen in that region as well as no abnormality seen within duodenum. ASSESSMENT AND PLAN: The patient is a 34-year-old male with past medical history of alcohol abuse, presenting with hematemesis secondary to bleeding Lou-Martinez tear and alcoholic hepatitis. 1. Hematemesis/bleeding Lou-Martinez tear: The patient initially presented with a 2- to 3-day history of increased nausea and vomiting with progressively worsening hematemesis during that time. On admission, he was noted to have a decreased hemoglobin and hematocrit, but not significantly decreased when compared to baseline. However, in the next 24 to 48 hours, he did exhibit a significant decline in his hemoglobin and hematocrit, indicative of gastrointestinal bleeding. He subsequently underwent upper endoscopy on 11/19/2019, which showed the presence of what appeared to be two visible vessels within the distal esophagus, one of which was actively bleeding. Both of these were intervened upon with bipolar cauterization with good hemostasis achieved. In the postoperative period, the patient has been having black bowel movements yesterday, but this has since stopped today, making the likelihood of no further bleeding higher. He did have a continued decrease in his hemoglobin and hematocrit when compared to yesterday, but I feel this may be due to the actively bleeding that had been going on prior to the procedure and that the body is now equilibrated to the new total body volume. Recommendations: a. Would continue to trend his hemoglobin and hematocrit and transfuse as necessary to maintain the hemoglobin and hematocrit of 7/21. b. Continue to monitor clinically for signs of active GI bleeding. c. I agree with primary team in transfusing the patient 2 units of PRBCs given his decreased hemoglobin and hematocrit. d. Continue the patient on PPI b.i.d. in addition to aggressive antiemetic control. 2. Elevated liver function tests/alcoholic hepatitis. The patient is presenting with a significant alcohol abuse history, drinking approximately 3 or more glasses of wine daily for the last several years. On admission, his labs were consistent with alcoholic hepatitis that is currently responding to more conservative management. Recommendations: a. Continue to trend his LFTs and INR daily to monitor liver function. b. Continue with supportive care as you are doing. c. Strongly encouraged alcohol cessation. d. Continue with the alcoholic withdrawal protocol. We will continue to follow. Please call with any questions. Job ID: [id number]
[2019-11-20] MEDS ORDERED: Ondansetron PF 4 MG/2 ML Vial IVP PRN (16:30)
[2019-11-21] MEDS: Lactated Ringer's 1,000 ML IV SCH ×3 (01:55→20:07)
[2019-11-21] MEDS: chlordiazePOXIDE HCl 25 MG CAP PO SCH ×4 (02:52→20:07)
[2019-11-21] MEDS: Pantoprazole 40 MG VIAL IVP SCH ×2 (02:53→13:59)
[2019-11-21 06:10] LABS: #Eosinphils 0.2 thou/uL (0.0-0.7); #Lymphocytes 1.7 thou/uL (1.20-3.40); #Monocytes 0.5 thou/uL (0.11-0.59); #Neutrophils 2.1 thou/uL (1.40-6.50); %Basophils 0.9 % (0.0-1.0); %Lymphocytes 37.3 % (21.0-51.0); %Monocytes 10.3 % (0.0-10.0); %Neutrophils 46.5 % (42.0-75.0); Hemoglobin 7.3 g/dL (14.0-18.0); Mean Corpuscular HGB CONC 35.1 g/dL (32.0-36.0); Mean Corpuscular Hemoglobin 34.3 pg (27.0-31.0); Mean Corpuscular Volume 97.7 fL (78.0-98.0); Platelet Count 121 thou/uL (130-400); RBC Distribution Width 13.7 % (11.5-14.5); Red Blood Cell (RBC) Count 2.13 mill/uL (4.70-6.10); White Blood Cell (WBC) Count 4.5 thou/uL (4.8-10.8)
[2019-11-21 06:26] LABS: ALT (SGPT) 109 U/L (8-55); AST (SGOT) 205 U/L (5-34); Alkaline Phosphatase 96 U/L (40-110); Anion Gap 9 mmol/L (10-20); BUN (Urea Nitrogen) 7 mg/dL (8.9-20.6); Calc. Creatinine Clearance 109 mL/min (70-130); Calcium 8.1 mg/dL (7.8-10.44); Carbon Dioxide 28 mmol/L (22-29); Chloride 106 mmol/L (98-107); Estimated GFR-MDRD Greater than 90; Globulin 1.3 g/dL (2.4-3.5); Glucose 95 mg/dL (70-105); Potassium 3.8 mmol/L (3.5-5.1); Protein, Total 4.3 g/dL (6.0-8.3); Sodium 139 mmol/L (136-145)
--- NOTE | 2019-11-21 06:26 | PDOC.FM ---
- Subjective Subjective: Pt has not had continued dark BM's. States he is eager to go home to help take care of his kids. Hgb dropped to 7.3 from yesterday. plt 121. denies N/V. - Objective MAR Reviewed: Yes Vital Signs & Weight: Vital Signs (12 hours) Temp Pulse Resp BP BP Pulse Ox 11/21/19 04:00 97.7 F 89 18 106/63 99 11/21/19 00:00 97.9 F 94 18 100/62 100/62 98 11/20/19 20:00 98 11/20/19 19:17 98.2 F 86 18 100/62 98 Weight Admit Weight 60.192 kg Weight 60.192 kg I&O: 11/19/19 11/20/19 11/21/19 06:59 06:59 06:59 Intake Total 1000 2300 2960 Balance 1000 2300 2960 Result Diagrams: 11/21/19 05:48 11/21/19 05:48 Phys Exam - Physical Examination Constitutional: NAD HEENT: moist MMs, sclera anicteric Neck: no nodes, no JVD, full ROM Respiratory: no wheezing, no rales, no rhonchi, clear to auscultation bilateral Cardiovascular: RRR, no significant murmur Gastrointestinal: soft, non-tender, no distention, positive bowel sounds Musculoskeletal: no edema, pulses present Neurological: non-focal, normal sensation, moves all 4 limbs Psychiatric: normal affect, A&O x 3 Skin: no rash, normal turgor, cap refill <2 seconds Dx/Plan (1) Gastrointestinal hemorrhage with melena Code(s): K92.1 - MELENA Status: Acute (2) Acute blood loss anemia Code(s): D62 - ACUTE POSTHEMORRHAGIC ANEMIA Status: Acute (3) GLENNA (acute kidney injury) Code(s): N17.9 - ACUTE KIDNEY FAILURE, UNSPECIFIED Status: Acute (4) Alcoholic hepatitis Code(s): K70.10 - ALCOHOLIC HEPATITIS WITHOUT ASCITES Status: Acute (5) Hematemesis Code(s): K92.0 - HEMATEMESIS Status: Acute - Plan Plan: 34yo M with h/o EtOH abuse presents for hematemasis and nausea #Suspected Acute Alcoholic hepatitis - 3 day onset of nausea, vomiting, mild epigastric pain - improved this AM - Transaminitis with AST 570-> 172-> 205, ALT 308-> 120-> 109, Tbili 2.2-> 1.3 - Hepatitis panel neg, HIV and RPR neg - CT abd - enlarged, fatty liver - RUQ US, hepatomegaly - INR 1.2 - UDS, APA, and EtOH lv's negative - Pt overall improved this AM, eager to quit alcohol for good #Upper GI bleed, 2/2 X2 Marbella Louise tears and erosive esophagitis - likely 2/2 above. approx 250cc hematemesis at bedside in ED - no further hematemesis since admission, nausea resolved - GI consulted, Dr. Bravo, apprec recs - EGD on 11/18 showed X2 marbella louise tears and erosive esophagitis DARSHAN Castro - Continue PPI IV 40 mg BID - Clear liquid diet, advance as tolerated - antiemetics - transfuse below hgb 7 hct 21 - Zofran PRN - Hb 13.5 on admission, 5.9 hgb on 11/19, 7.3 on 11/20. - Ordered 1 unit pRBC and recheck H&H 4 hours post transfusion was 8. #Acute blood loss anemia - Hb 13.5 on admission, 5.9 hgb on 11/19, 7.3 on 11/20. - given 2 unit pRBC on 11/19 and recheck H&H 4 hours post transfusion was 8.0. #EtOH abuse with withdrawals - Last drink 11/15, drinks 4+ glasses of wine nightly - ASE protocol, scores 4, 3, 2,1 overnight - Librium taper - Folic acid, MV, Thiamine - wants to quit drinking, discussed AA meetings and librium taper #Anxiety - Self-treated with alcohol in past - interested in starting SSRI - Had SE of sexual dysfunction with zoloft - will start lexapro after GI workup or at f/u visit with PCP #Suspected prerenal GLENNA - Cr 1.55, s/p 2L NS in ED - LR @ 100cc/hr - monitor, AM labs pending - replace lytes as necessary #Leukocytosis, resolved - WBC 13.4, likely 2/2 volume depletion--> 5.2 -> 4.5 - no s/s of infection, will monitor #Pulmonary nodule - incidental findings on CT Abd - needs outpt follow up #Tob abuse - counseled on cessation #Lactose Intolerance - avoid triggering foods PCP: None - Dr. Taylor many years ago Code: Full IVF: LR @ 100cc/hr Diet: clears, advance as tolerated. VTE: none - upper GI bleed Disposition/LOS: Admitted to medical inpt for acute alcoholic hepatitis and hematemasis. GI consulted. Monitor for EtOH withdrawals. Treating underlying conditions. Anticipate LOS > 48hrs. Addendum - Attending - Attending Attestation Date/Time: 11/21/19 2461 I personally evaluated the patient and discussed the management with Dr. Miller I agree with the History, Examination, Assessment and Plan documented above with any addition or exceptions noted below. Seen while walking today. will repeat H&H this afternoon and may need additional unit of blood. advancing diet today. Possible d/c in the next 24-48 hr.
[2019-11-21] MEDS: Multivit, Therapeutic 1 TAB PO SCH (08:03)
[2019-11-21] MEDS: Thiamine 100 MG TAB PO SCH (08:03)
[2019-11-21] MEDS: Magnesium Oxide 400 MG TAB PO SCH (08:03)
[2019-11-21] MEDS: Folic Acid 1 MG TAB PO SCH (08:04)
[2019-11-21 08:33] LABS: INR-International Normal Ratio 0.9; Prothrombin Time 12.5 SEC (12.0-14.7)
--- NOTE | 2019-11-21 14:52 | PRG ---
DATE OF SERVICE: This is a GI followup. HISTORY: Mr. Milner has had no further vomiting. He wants to eat. He has been tolerating clear liquids, expected to be transferred to full liquids here soon, and his stool is cleared now. He last drank about 2 to 3 weeks ago. 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 PHYSICAL EXAMINATION: VITAL SIGNS: Temperature is 98.1, pulse is 80, blood pressure 103/67. GENERAL: He is resting comfortably in bed. He is neither diaphoretic nor anxious or tremulous. He appears well. LUNGS: Clear. HEART: Regular rate and rhythm without clicks or murmurs. ABDOMEN: Soft and nontender. LABORATORY DATA: White count 4.5, hemoglobin 7.3, platelet count 121. INR is 12.5. Sodium is 139, potassium 3.8, BUN and creatinine are 7 and 0.8. AST is up to 205, ALT is 109, alkaline phosphatase is 96. Albumin is 3. Lipase was normal on admission. TSH is normal at 0.3. Hepatitis A, B, and C are negative. LFTs were markedly improved from admission. RECOMMENDATIONS: Advance diet as tolerated. Monitor LFTs. With the viral hepatitis serologies, this is likely an acute episode. These need to be followed as an outpatient if he goes home. He can follow up back with Dr. Bravo in a few weeks to make sure that it came down. It would be benefit for him to take multivitamin, thiamine, and folate, which he is on here. I have talked about alcohol cessation. He wants to follow up with primary doctor in the outpatient setting. Discussed treatment for anxiety. We will leave this to the internal medicine service. When he goes home, he needs to go home on 8 weeks of PPI therapy once a day, 40 mg of Protonix or equivalent. Job ID: [id number]
[2019-11-21 15:29] LABS: Hemoglobin 7.3 g/dL (14.0-18.0)
[2019-11-22] MEDS: chlordiazePOXIDE HCl 25 MG CAP PO SCH ×4 (02:15→20:27)
[2019-11-22] MEDS: Pantoprazole 40 MG VIAL IVP SCH ×2 (02:15→14:57)
[2019-11-22] MEDS: Lactated Ringer's 1,000 ML IV SCH ×2 (02:18→14:57)
[2019-11-22 05:25] LABS: #Basophils 0.1 thou/uL (0.0-0.2); #Eosinphils 0.2 thou/uL (0.0-0.7); #Lymphocytes 1.6 thou/uL (1.20-3.40); #Monocytes 0.7 thou/uL (0.11-0.59); #Neutrophils 3.1 thou/uL (1.40-6.50); %Basophils 1.1 % (0.0-1.0); %Eosinophils 3.6 % (0.0-10.0); %Lymphocytes 28.5 % (21.0-51.0); %Monocytes 12.8 % (0.0-10.0); %Neutrophils 53.9 % (42.0-75.0); Hemoglobin 6.9 g/dL (14.0-18.0); Mean Corpuscular HGB CONC 34.3 g/dL (32.0-36.0); Mean Corpuscular Hemoglobin 34.4 pg (27.0-31.0); Mean Platelet Volume 8.2 fL (7.4-10.4); Platelet Count 143 thou/uL (130-400); RBC Distribution Width 13.8 % (11.5-14.5); Red Blood Cell (RBC) Count 2.01 mill/uL (4.70-6.10); White Blood Cell (WBC) Count 5.7 thou/uL (4.8-10.8)
[2019-11-22 05:26] LABS: INR-International Normal Ratio 0.9; Prothrombin Time 12.3 SEC (12.0-14.7)
[2019-11-22 05:43] LABS: ALT (SGPT) 124 U/L (8-55); AST (SGOT) 185 U/L (5-34); Albumin 3.1 g/dL (3.5-5.0); Alkaline Phosphatase 121 U/L (40-110); Anion Gap 10 mmol/L (10-20); BUN (Urea Nitrogen) 6 mg/dL (8.9-20.6); Bilirubin, Total 0.5 mg/dL (0.2-1.2); Calc. Creatinine Clearance 117 mL/min (70-130); Calcium 8.4 mg/dL (7.8-10.44); Carbon Dioxide 28 mmol/L (22-29); Chloride 106 mmol/L (98-107); Estimated GFR-MDRD Greater than 90; Globulin 1.6 g/dL (2.4-3.5); Glucose 95 mg/dL (70-105); Potassium 3.6 mmol/L (3.5-5.1); Protein, Total 4.7 g/dL (6.0-8.3); Sodium 140 mmol/L (136-145)
--- NOTE | 2019-11-22 07:40 | PDOC.FM ---
- Subjective Subjective: Pt denies further episodes of black stools, bloody emesis, or N/V. Hgb dropped to 6.9 this AM. No acute overnight events. VSS. - Objective MAR Reviewed: Yes Vital Signs & Weight: Vital Signs (12 hours) Temp Pulse Resp BP BP BP Pulse Ox 11/22/19 04:57 97.8 F 72 16 104/61 98 11/22/19 04:00 104/61 11/22/19 01:52 97.9 F 74 18 104/57 L 104/57 L 98 11/21/19 20:06 98.4 F 94 18 100/65 98 Weight Admit Weight 60.192 kg Weight 60.192 kg I&O: 11/21/19 11/22/19 11/23/19 06:59 06:59 06:59 Intake Total 2960 3200 Balance 2960 3200 Result Diagrams: 11/22/19 11:56 11/22/19 05:12 Phys Exam - Physical Examination Constitutional: NAD HEENT: moist MMs, sclera anicteric conjunctival pallor Neck: no nodes, supple Respiratory: no wheezing, clear to auscultation bilateral Cardiovascular: RRR, no significant murmur Gastrointestinal: soft, non-tender Musculoskeletal: no edema, pulses present Neurological: non-focal, moves all 4 limbs Psychiatric: normal affect, A&O x 3 Skin: no rash, normal turgor, cap refill <2 seconds Dx/Plan (1) Gastrointestinal hemorrhage with melena Code(s): K92.1 - MELENA Status: Acute (2) Acute blood loss anemia Code(s): D62 - ACUTE POSTHEMORRHAGIC ANEMIA Status: Acute (3) GLENNA (acute kidney injury) Code(s): N17.9 - ACUTE KIDNEY FAILURE, UNSPECIFIED Status: Resolved (4) Alcoholic hepatitis Code(s): K70.10 - ALCOHOLIC HEPATITIS WITHOUT ASCITES Status: Acute (5) Hematemesis Code(s): K92.0 - HEMATEMESIS Status: Resolved - Plan Plan: 34yo M with h/o EtOH abuse presents for hematemasis and nausea #Suspected Acute Alcoholic hepatitis - 3 day onset of nausea, vomiting, mild epigastric pain - improved this AM - Transaminitis with AST 570-> 172-> 205-> 185, ALT 308-> 120-> 109-> 124, Tbili 2.2-> 1.3-> 0.5 - Hepatitis panel neg, HIV and RPR neg - CT abd - enlarged, fatty liver - RUQ US, hepatomegaly - INR 1.2, 0.9 - UDS, APA, and EtOH lv's negative - Pt overall improved this AM with no furhter episodes of melena or hematemesis , eager to quit alcohol for good #Upper GI bleed, 2/2 X2 Marbella Louise tears and erosive esophagitis - likely 2/2 above. approx 250cc hematemesis at bedside in ED - no further hematemesis since admission, nausea resolved - GI consulted, Dr. Bravo, apprec recs - EGD on 11/18 showed X2 marbella louise tears and erosive esophagitis DARSHAN Castro - Continue PPI IV 40 mg BID - Clear liquid diet, advance as tolerated - antiemetics - transfuse below hgb 7 hct 21 - Received 2 units pRBC on 11/19. - Zofran PRN - Hb 13.5 on admission, 5.9 hgb on 11/19, 8.0 on 11/19 post transfusion. 7.3 on . 6.9 on 11/21 - Ordered 1 unit pRBC and recheck H&H 4 hours post transfusion. #Acute blood loss anemia - Hb 13.5 on admission, 5.9 hgb on 11/19, 7.3 on 11/20. 6.9 on 11/21. - given 2 unit pRBC on 11/19 and recheck H&H 4 hours post transfusion was 8.0. - 1 unit ordered 11/21. #EtOH abuse with withdrawals - Last drink 11/15, drinks 4+ glasses of wine nightly - ASE protocol, scores 2, 2, 1, 1 overnight - Librium taper - Folic acid, MV, Thiamine - wants to quit drinking, discussed AA meetings and librium taper #Anxiety - Self-treated with alcohol in past - interested in starting SSRI - Had SE of sexual dysfunction with zoloft - will start lexapro after GI workup or at f/u visit with PCP #Suspected prerenal GLENNA, improved - Cr 1.55-> 0.75 - monitor - replace lytes as necessary #Leukocytosis, resolved - WBC 13.4, likely 2/2 volume depletion--> 5.2 -> 4.5 - no s/s of infection, will monitor #Pulmonary nodule - incidental findings on CT Abd - needs outpt follow up #Tob abuse - counseled on cessation #Lactose Intolerance - avoid triggering foods PCP: None - Dr. Taylor many years ago Code: Full IVF: LR @ 100cc/hr Diet: advance as tolerated. Tolerating diet well. VTE: none - upper GI bleed Disposition/LOS: Admitted to medical inpt for acute alcoholic hepatitis and hematemasis. GI consulted. Monitor for EtOH withdrawals. Treating underlying conditions. Anticipate LOS > 48hrs. Addendum - Attending - Attending Attestation Date/Time: 11/22/19 6204 I personally evaluated the patient and discussed the management with Dr. Tapia. I agree with the History, Examination, Assessment and Plan documented above with any addition or exceptions noted below. Tx 1 uPRBC and give iron infusion today. Advancing diet. Possible D/c tomorrow but want to see 24 hrs of stable H&H.
[2019-11-22] MEDS: Thiamine 100 MG TAB PO SCH (08:49)
[2019-11-22] MEDS: Magnesium Oxide 400 MG TAB PO SCH (08:49)
[2019-11-22] MEDS: Folic Acid 1 MG TAB PO SCH (08:50)
[2019-11-22] MEDS: Multivit, Therapeutic 1 TAB PO SCH (08:50)
[2019-11-22] MEDS ORDERED: Iron Sucrose Complex 500 MG in Sodium Chloride 0.9% 250 ML 250 ML IVPB SCH (10:15)
[2019-11-22] MEDS: Iron, Sodium Ferric Gluconate 250 MG in Sodium Chloride 0.9% 100 ML IVPB SCH ×2 (11:44→22:36)
[2019-11-22 12:18] LABS: Hemoglobin 8.1 g/dL (14.0-18.0)
[2019-11-23] MEDS: chlordiazePOXIDE HCl 25 MG CAP PO SCH ×2 (02:29→08:38)
[2019-11-23] MEDS: Lactated Ringer's 1,000 ML IV SCH ×2 (02:30→06:20)
[2019-11-23] MEDS: Pantoprazole 40 MG VIAL IVP SCH (02:30)
[2019-11-23 05:32] LABS: INR-International Normal Ratio 0.9; Prothrombin Time 11.7 SEC (12.0-14.7)
[2019-11-23 05:49] LABS: Band 1 % (5-11); Eosinophils 1 % (0-10); Hemoglobin 8.2 g/dL (14.0-18.0); Hypochromia SLIGHT = 6-15 cells (100X) (0-5/hpf); Lymphocytes 21 % (21-51); MDiff Complete? YES; Mean Corpuscular HGB CONC 35.3 g/dL (32.0-36.0); Mean Corpuscular Hemoglobin 35.2 pg (27.0-31.0); Mean Corpuscular Volume 99.7 fL (78.0-98.0); Mean Platelet Volume 8.2 fL (7.4-10.4); Monocytes 11 % (0-10); Neutrophil 66 % (42-75); Platelet Count 204 thou/uL (130-400); Platelet Morphology Comment Appears Adequate; RBC Distribution Width 14.2 % (11.5-14.5); Red Blood Cell (RBC) Count 2.32 mill/uL (4.70-6.10)
[2019-11-23 05:51] LABS: ALT (SGPT) 114 U/L (8-55); AST (SGOT) 115 U/L (5-34); Albumin 3.2 g/dL (3.5-5.0); Alkaline Phosphatase 125 U/L (40-110); Anion Gap 8 mmol/L (10-20); BUN (Urea Nitrogen) 6 mg/dL (8.9-20.6); Bilirubin, Total 0.5 mg/dL (0.2-1.2); Calc. Creatinine Clearance 104 mL/min (70-130); Calcium 8.5 mg/dL (7.8-10.44); Carbon Dioxide 30 mmol/L (22-29); Chloride 106 mmol/L (98-107); Estimated GFR-MDRD Greater than 90; Globulin 1.7 g/dL (2.4-3.5); Glucose 95 mg/dL (70-105); Potassium 3.3 mmol/L (3.5-5.1); Protein, Total 4.9 g/dL (6.0-8.3); Sodium 141 mmol/L (136-145)
[2019-11-23 07:44] VITALS: BP 119/70; TEMP 98.1
--- NOTE | 2019-11-23 07:58 | PDOC.FM ---
- Subjective Subjective: Pt denies any N/V/D, black or bloody stool eating well, and has great appetite. Hgb stable overnight 8.1-> 8.2! - Objective MAR Reviewed: Yes Vital Signs & Weight: Vital Signs (12 hours) Temp Pulse Resp BP BP Pulse Ox 11/23/19 07:42 98.1 F 87 16 119/70 97 11/22/19 20:05 110/67 11/22/19 20:03 98 Weight Admit Weight 60.192 kg Weight 60.192 kg I&O: 11/22/19 11/23/19 11/24/19 06:59 06:59 06:59 Intake Total 3200 3445 Balance 3200 3445 Result Diagrams: 11/23/19 05:05 11/23/19 05:05 Phys Exam - Physical Examination Constitutional: NAD HEENT: PERRLA, moist MMs, sclera anicteric Neck: no nodes, no JVD, full ROM Respiratory: no wheezing, no rales, no rhonchi, clear to auscultation bilateral Cardiovascular: RRR, no significant murmur, no rub Gastrointestinal: soft, non-tender, no distention, positive bowel sounds Musculoskeletal: no edema, pulses present Neurological: non-focal, normal sensation Psychiatric: normal affect, A&O x 3 Skin: no rash, normal turgor, cap refill <2 seconds Dx/Plan (1) Gastrointestinal hemorrhage with melena Code(s): K92.1 - MELENA Status: Acute (2) Acute blood loss anemia Code(s): D62 - ACUTE POSTHEMORRHAGIC ANEMIA Status: Acute (3) Alcoholic hepatitis Code(s): K70.10 - ALCOHOLIC HEPATITIS WITHOUT ASCITES Status: Acute - Plan Plan: 34yo M with h/o EtOH abuse presents for hematemasis and nausea #Suspected Acute Alcoholic hepatitis - 3 day onset of nausea, vomiting, mild epigastric pain - improved this AM - Transaminitis with AST 570-> 172-> 205-> 185, ALT 308-> 120-> 109-> 124, Tbili 2.2-> 1.3-> 0.5 - Hepatitis panel neg, HIV and RPR neg - CT abd - enlarged, fatty liver - RUQ US, hepatomegaly - INR 1.2, 0.9 - UDS, APA, and EtOH lv's negative - Pt overall improved this AM with no further episodes of melena or hematemesis , eager to quit alcohol for good #Upper GI bleed, 2/2 X2 Marbella Louise tears and erosive esophagitis - likely 2/2 above. approx 250cc hematemesis at bedside in ED - no further hematemesis since admission, nausea resolved - GI consulted, Dr. Bravo, apprec recs - EGD on 11/18 showed X2 marbella louise tears and erosive esophagitis DARSHAN Castro - Continue PPI IV 40 mg BID - Clear liquid diet, advance as tolerated - antiemetics - transfuse below hgb 7 hct 21 - Received 2 units pRBC on 11/19, and 1 unit on 11/21. - Zofran PRN - Hb 13.5 on admission, 5.9 hgb on 11/19, 8.0 on 11/19 post transfusion. 7.3 on . 6.9 on 11/21. 8.1 on 11/21 4 hours post transfusion. 8.2 on 11/22. #Acute blood loss anemia, stable. - Hb 13.5 on admission, 5.9 hgb on 11/19, 7.3 on 11/20. 6.9 on 11/21. - given 2 unit pRBC on 11/19 and recheck H&H 4 hours post transfusion was 8.0. Given 1 unit pRBC on 11/21, 8.1 4 hour hgb post transfusion. 8.2 on 11/22. #EtOH abuse with withdrawals - Last drink 11/15, drinks 4+ glasses of wine nightly - ASE protocol, scores 2, 2, 1, 1 overnight - Librium taper - Folic acid, MV, Thiamine - wants to quit drinking, discussed AA meetings and librium taper #Anxiety - Self-treated with alcohol in past - interested in starting SSRI - Had SE of sexual dysfunction with zoloft - will start lexapro after GI workup or at f/u visit with PCP #Suspected prerenal GLENNA, improved - Cr 1.55-> 0.75 -> 0.85 - monitor - replace lytes as necessary #Leukocytosis, resolved - WBC 13.4, likely 2/2 volume depletion--> 5.2 -> 4.5 -> 9.0 - no s/s of infection, will monitor #Pulmonary nodule - incidental findings on CT Abd - needs outpt follow up #Tob abuse - counseled on cessation #Lactose Intolerance - avoid triggering foods PCP: None - Dr. Taylor many years ago Code: Full IVF: LR @ 100cc/hr Diet: advance as tolerated. Tolerating diet well. VTE: none - upper GI bleed Disposition/LOS: Admitted to medical inpt for acute alcoholic hepatitis and hematemasis. GI consulted. Monitor for EtOH withdrawals. Treating underlying conditions. Anticipate LOS > 48hrs. Stable hgb, and probable soon D/C home. Addendum - Attending - Attending Attestation Date/Time: 11/23/19 [id number] I personally evaluated the patient and discussed the management with Dr. Miller. I agree with the History, Examination, Assessment and Plan documented above with any addition or exceptions noted below. d/c home on librium taper. f/u 2 wk at [facility].
[2019-11-23] MEDS ORDERED: Potassium Chloride 20 MEQ TAB PO SCH (08:00)
[2019-11-23] MEDS: Folic Acid 1 MG TAB PO SCH (08:38)
[2019-11-23] MEDS: Magnesium Oxide 400 MG TAB PO SCH (08:38)
[2019-11-23] MEDS: Multivit, Therapeutic 1 TAB PO SCH (08:38)
[2019-11-23] MEDS: Thiamine 100 MG TAB PO SCH (08:38)
--- NOTE | 2019-11-23 20:36 | PQF ---
JUNITO LEGGETT LESLIE * r [id number] CLINICAL DOCUMENTATION IMPROVEMENT CLARIFICATION FORM: ICD-10 Updated PLEASE DO AN ADDENDUM TO THE PROGRESS NOTE WITH ANY DOCUMENTATION UPDATES OR ADDITIONS AND CARRY THROUGH TO DC SUMMARY. THANK YOU. Date: 11/23/2019 ATTN: DR. Erika BLANCHARD Please exercise your independent, professional judgment in responding to the clarification form. Clinical indicators are provided on the bottom of this form for your review. Please check appropriate box(s): Underweight without malnutrition In addition, please specify: Present on Admission (POA): [ * ] Yes CLINICAL INDICATORS - SIGNS / SYMPTOMS / LABS / RESULTS AND LOCATION IN MR 11/19 RD ASSESSMENT: CALCULATED BMI 17.9; 5-11 % WT LOSS IN UNKNOWN TIME FRAME.; PT REPORTS HE THINKS HE HAS LOST WEIGHT D/T POOR APPETITE. DIET RECALL LIKELY MEETING LESS THAN 75% ESTIMATED NUTRIENT NEEDS FOR GREATER THAN 3 MONTHS WITH REPLACEMENT OF ALCOHOL 3-4 GLASSES WINE/DAY WITH NUTRITION SUGGESTING SEVERE MALNUTRITION . 11/17 H&P ( RAFA) PT PRESENTS FOR 3 DAY HISTORY OF NAUSEA AND VOMITING, A/P : ALCOHOL ABUSE WITH WITHDRAWALS. HE STATES THAT ON 11/15 HE STARTED T0 HAVE GENERAL MALAISE AND LOSS OF APPETITE. RISK: HX LACTOSE INTOLERANCE, ALCOHOLIC HEPATITIS (CONSULT/DAIN) 11/18 DX GI BLEED ( PN/LO) 11/19 TREATMENTS: DIETARY CONSULT 09/21 GI CONSULT 11/09 RECOMMEND ENSURE ENLIVE ONCE DAILY. Moderate Malnutrition (in acute illness) Energy Intake: <75% of estimated energy requirement for > 7 days Weight Loss: 1-2%/1 week; 5%/ 1 month; 7.5%/3 months Other: mild body fat loss; mild muscle mass loss; mild fluid accumulation; Severe Malnutrition (in acute illness) Energy Intake: < 50% of estimated energy requirement for > 5 days Weight Loss: >1-2%/1 week; >5%/1 month; >7.5%/3 months Other: moderate body fat loss; moderate muscle mass loss; moderate- severe fluid accumulation; measurably reduced agricultural equipment test engineer strength Moderate Malnutrition (in chronic illness) Energy Intake: <75% of estimated energy requirement for >1 month Weight Loss: 5%/1 month; 7.5%/3 months; 10%/6 months; 20%/1 year Other: mild body fat loss; mild muscle mass loss; mild fluid accumulation Severe Malnutrition (in chronic illness) Energy Intake: <75% of estimated energy requirement for >1 month Weight Loss: >5%/1 month; >7.5%/3 months; >10%/6 months; >20%/1 year Other: severe body fat loss; severe muscle mass loss; severe fluid accumulation ; measurably reduced agricultural equipment test engineer strength THANK YOU! YASHIRA (This form is maintained as a part of the permanent medical record) 2014 [employer]. All Rights Reserved REID [email or web address]
--- NOTE | 2019-11-24 03:36 | DIS ---
DATE OF ADMISSION: 11/18/2019 DATE OF DISCHARGE: 11/23/2019 ADMITTING ATTENDING: Tay Nunez MD. DISCHARGE ATTENDING: Caesar Hernández MD. CONSULTS: Gastroenterology, Dr. Bravo. Walking program. PROCEDURES: EGD on 11/18, which showed 2 Lou-Martinez tears with exposed vessels as well as distal esophagitis. DIAGNOSES: 1. Suspected acute alcoholic hepatitis. 2. Upper gastrointestinal bleed secondary to Lou-Martinez tears and erosive esophagitis. 3. Acute blood loss anemia. 4. Alcohol abuse with withdrawals. 5. Anxiety. 6. Suspected pre-renal acute kidney injury, improved. 7. Leukocytosis, resolved. 8. Pulmonary nodule of uncertain significance. 9. Tobacco abuse. 10. Lactose intolerance. DISCHARGE MEDICATIONS: Lexapro 10 mg p.o. daily; ferrous sulfate 325 mg p.o. daily; folic acid 1 mg p.o. daily; multivitamin one tab p.o. daily; Protonix 40 mg p.o. daily; thiamine 300 mg p.o. daily; Librium taper 25 mg 24 tabs given, take one pill b.i.d. for 4 days and take 1 pill once a day for 4 days. HISTORY OF PRESENT ILLNESS/HOSPITAL COURSE: Mr. Annia Berrios is a 34-year-old male with past medical history of alcohol abuse, coming into the emergency department due to nausea and vomiting blood. He had been drinking heavily recently and started to retch and started vomiting blood. He was found initially to have a hemoglobin of 13.5, which downtrended to 7.9 and 7.6. He was scoped by Dr. Bravo with EGD on 11/18, which found 2 Lou-Martinez tears and erosive esophagitis. The patient had been on b.i.d. Protonix IV while in the hospital. The bleeding stopped, but he continue to downtrend in his hemoglobin possibly showing his true numbers from the initial GI bleed, went down to 5.9. He was given 2 units of blood on 11/19, it came up to 8.0, the next day 7.3 and then 6.9 on 11/21, where he was given 1 unit of blood, which came to 8.1. The next day, his hemoglobin was 8.2 on 11/22, showing signs of stability in his blood loss. He was also given iron infusion on 11/22. The patient was incidentally found to have a pulmonary nodule which will need followup in the outpatient setting. The patient is aware of this and understands that this needs to be worked up further, especially since he is a smoker. The patient was sent home on Lexapro 10 mg once a day as he was using alcohol to free his anxiety and would like to start a medication in the past, Zoloft that caused erectile dysfunction. He would like to not experience that. We also sent him oral iron to help build up in the blood and a Librium taper. He was advised to not take the Librium taper and alcohol at the same time and understands the risks in doing so. DISPOSITION: Stable upon discharge with improved/stable hemoglobin. DISCHARGE INSTRUCTIONS: LOCATION: To home. DIET: Regular diet with soft foods. ACTIVITY: As tolerated. FOLLOWUP: Follow up with primary care physician. Patient would like to establish with [facility], Dr. Arroyo, and follow up with Dr. Bravo in 2 to 3 weeks. Job ID: [id number]
== END 2019-11-23 12:53 | disposition home or self-care (01) | DRG 391 ==
LOC: ERS 08:28 → T4-B 13:26
PROVIDERS: ADMIT Student in an Organized Health Care Education/Training Program; ATTEND Student in an Organized Health Care Education/Training Program
PROC: 0W3P8ZZ Control Bleeding in Gastrointestinal Tract, Via Natural or Artificial Opening Endoscopic (ICD-10-PCS; principal; 2019-11-19)
PROC: 30233N1 Transfusion of Nonautologous Red Blood Cells into Peripheral Vein, Percutaneous Approach (ICD-10-PCS; 2019-11-20)
DX: K21.0 Gastro-esophageal reflux disease with esophagitis (principal); K22.6 Gastro-esophageal laceration-hemorrhage syndrome; D62 Acute posthemorrhagic anemia; N17.9 Acute kidney failure, unspecified; F10.230 Alcohol dependence with withdrawal, uncomplicated; Z68.1 Body mass index [BMI] 19.9 or less, adult; K70.10 Alcoholic hepatitis without ascites; F41.9 Anxiety disorder, unspecified; D72.829 Elevated white blood cell count, unspecified; R91.1 Solitary pulmonary nodule; F17.200 Nicotine dependence, unspecified, uncomplicated; E73.9 Lactose intolerance, unspecified; E86.9 Volume depletion, unspecified; K70.0 Alcoholic fatty liver; R63.6 Underweight; Z71.6 Tobacco abuse counseling
CPT/HCPCS: 36415; 36430; 74177; 76705; 80053; 80074; 80306; 80307; 81003; 81015; 83036; 83690; 83735; 84100; 84443; 85025; 85610; 85730; 86780; 86850; 86900; 86901; 87389; 96361; 96365; 96375; C9113; J2250; J2405; J2704; J2765; J2916; J3411; J3490; J7050; P9016; Q9967